=== PATIENT | female | born 1990 | race Two or more races ===

== ENCOUNTER 2021-07-23 14:45 | Inpatient (IN) | payer OTHER ==
[~2021-07-23] VITALS: Ht 160 cm; Wt 78.9 kg
[2021-08-01] MEDS ORDERED: PRENATAL TABLE1 EAC1 (10:43)
[2021-08-01] MEDS ORDERED: FOLIC ACID20 MG (10:43)
== END 2021-08-03 12:19 | disposition home or self-care (01) | DRG 768 ==
LOC: OB/GYN 08-01 08:31 → LDR 08-01 08:31 → OB/GYN 08-01 16:14
PROVIDERS: ADMIT Obstetrics & Gynecology; ATTEND Obstetrics & Gynecology
PROC: 10E0XZZ Delivery of Products of Conception, External Approach (ICD-10-PCS; principal; 2021-08-01)
PROC: 0DQR0ZZ Repair Anal Sphincter, Open Approach (ICD-10-PCS; 2021-08-01)
PROC: 4A1HXCZ Monitoring of Products of Conception, Cardiac Rate, External Approach (ICD-10-PCS; 2021-08-01)
DX: O70.21 Third degree perineal laceration during delivery, IIIa (principal); Z37.0 Single live birth; Z3A.38 38 weeks gestation of pregnancy; Z20.822 Contact with and (suspected) exposure to COVID-19

== ENCOUNTER 2023-06-10 14:30 | Inpatient (IN) | payer OTHER ==
[~2023-06-10] VITALS: Ht 160 cm; Wt 74.4 kg
[~2023-06-10 14:30] MED LIST: FOLIC ACID20 MG; PRENATAL TABLE1 EAC1
[2023-06-16] MEDS ORDERED: OXYTOCIN 20 UNITS/500ML RL PIGGYBAG IV ONE (11:59)
[2023-06-16] MEDS ORDERED: AMPICILLIN SODIUM 2,000 MG VIAL IV ONE (12:15)
[2023-06-16] MEDS ORDERED: OXYTOCIN 500 ML IV SCH (12:15)
[2023-06-16] MEDS ORDERED: MORPHINE SULFATE 4 MG/ML CARTRIDGE IV PRN (12:15)
[2023-06-16 12:32] LABS: HEMATOCRIT 32.9 % (36.0-45.00); HEMOGLOBIN 10.9 g/dL (12.0-15.00); MEAN CELL VOLUME 85.2 fL (80.00-100.00); MEAN CORPUSCULAR HEMOGLOBIN 28.3 pg (27.00-32.0); MEAN CORPUSCULAR HGB CONC 33.3 g/dl (32.0-36.0); PLATELET COUNT 223 K/uL (150-450); RED BLOOD COUNT 3.86 M/uL (4.00-6.00); RED CELL DISTRIBUTION WIDTH 16.1 % (11.5-14.5)
[2023-06-16 12:33] LABS: PH,URINE 7.5 (5.0-8.0); URINE APPEARANCE Cloudy; URINE BILIRRUBIN Negative (NEGATIVE); URINE BLOOD Negative; URINE COLOR Yellow; URINE GLUCOSE Negative (NEGATIVE); URINE LEUKOCYTE Negative; URINE NITRATE Negative; URINE PROTEIN Negative (NEGATIVE)
[2023-06-16 12:34] LABS: URINE BACTERIA 134.7 uL (0.0-1933); URINE EPITHELIAL CELLS 16.8 uL (0.0-38.8); URINE RBC 6.6 uL (0.0-20.8); URINE WBC 3.2 uL (0.0-23.2)
[2023-06-16 12:50] LABS: INR 0.95; PARTIAL THROMBOPLASTIN TIME 27.2 SECONDS (22.0-34.0)
[2023-06-16 12:56] LABS: ALBUMIN 2.7 gm/dL (3.4-5.0); BILIRUBIN TOTAL 0.51 mg/dL (0.3-1.2); CALCIUM 9.8 mg/dL (8.5-10.1); CREATININE SERUM 0.54 mg/dL (0.55-1.02); GFR 131.68; GLOBULINA 3.8 G/DL (2.4-3.5); POTASSIUM 4.17 mEq/L (3.5-5.1); TOTAL PROTEIN 6.5 gm/dL (6.4-8.2)
[2023-06-16] MEDS ORDERED: AMPICILLIN SODIUM 1,000 MG VIAL IV SCH (16:00)
[2023-06-16] MEDS ORDERED: OXYTOCIN 20 UNITS/1000ML RL PIGGYBAG IV ONE (16:35)
[2023-06-16] MEDS ORDERED: ERYTHROMYCIN BASE 1 GM TUBE OP ONE (16:35)
[2023-06-16] MEDS ORDERED: CHLORHEXIDINE GLUCONATE 120 ML BOTTLE TOP ONE (16:35)
[2023-06-16] MEDS ORDERED: MORPHINE SULFATE 2 MG/ML CARTRIDGE IV ONE (17:45)
[2023-06-16] MEDS ORDERED: METHYLERGONOVINE MALEATE 0.2 MG/ML AMPUL ONE (18:32)
[2023-06-16] MEDS ORDERED: CEFAZOLIN SODIUM 1,000 MG VIAL ONE (18:34)
[2023-06-16] MEDS ORDERED: MISOPROSTOL 100 MCG TABLET ONE (18:35)
[2023-06-16] MEDS ORDERED: METHYLERGONOVINE MALEATE 0.2 MG/ML AMPUL IV STA (18:52)
[2023-06-16] MEDS ORDERED: DOCUSATE SODIUM 100MG CAP PO SCH (18:53)
[2023-06-16] MEDS ORDERED: IBUprofen 600 MG TABLET PO SCH (18:54)
[2023-06-16] MEDS ORDERED: MISOPROSTOL 100 MCG TABLET RECTAL ONE ×2 (19:00→20:45)
[2023-06-16] MEDS ORDERED: CHLORHEXIDINE GLUCONATE 120 ML BOTTLE TOP SCH (19:00)
[2023-06-16] MEDS ORDERED: LIDOCAINE HCL 1% 200MG/20ML VIAL IJ SCH (19:00)
[2023-06-16] MEDS ORDERED: ERYTHROMYCIN BASE 1 GM TUBE OP SCH (19:00)
[2023-06-16] MEDS ORDERED: OXYTOCIN 1,000 ML IV SCH (19:00)
[2023-06-16] MEDS ORDERED: CEFAZOLIN SODIUM 1,000 MG VIAL IV ONE (19:00)
[2023-06-16 20:01] LABS: ABG PH 7.326 (7.35-7.45); ABG PO2 32.7 mmHg (80-100); ABG pCO2 44.8 mmHg (35-45); BASE EXCESS -3.2 mmol/l; BICARBONATE 22.9 mmol/l (23-25); SaO2 56.7 %; Tco2 24.3 mmol/l; o2 21 %
[2023-06-17 05:56] LABS: HEMATOCRIT 27.5 % (36.0-45.00); HEMOGLOBIN 9.2 g/dL (12.0-15.00); MEAN CELL VOLUME 86.5 fL (80.00-100.00); MEAN CORPUSCULAR HEMOGLOBIN 28.9 pg (27.00-32.0); MEAN CORPUSCULAR HGB CONC 33.3 g/dl (32.0-36.0); PLATELET COUNT 166 K/uL (150-450); RED BLOOD COUNT 3.17 M/uL (4.00-6.00); RED CELL DISTRIBUTION WIDTH 16.1 % (11.5-14.5)
[2023-06-17] MEDS ORDERED: SOD FERRIC GLUC COMPLX/SUCROSE 62.5 MG/5 ML AMPUL IV ONE (07:30)
[2023-06-17] MEDS ORDERED: PNV,CALCIUM 72/IRON/FOLIC ACID 1 TAB TABLET PO SCH (09:00)
[2023-06-17] MEDS ORDERED: CEPHALEXIN 500 MG CAPSULE PO SCH (11:39)
[2023-06-18] MEDS ORDERED: IRON/V.C/V.B12/FOLIC A/VIT. E 1 CAPL CAPLET PO SCH (09:00)
== END 2023-06-18 10:24 | disposition home or self-care (01) | DRG 807 ==
LOC: LDR 06-16 11:00 → OB/GYN 06-16 18:30 → SURH 06-27 14:30
PROVIDERS: Obstetrics & Gynecology Gynecology; ADMIT Obstetrics & Gynecology; ATTEND Obstetrics & Gynecology
PROC: 10E0XZZ Delivery of Products of Conception, External Approach (ICD-10-PCS; principal; 2023-06-16)
PROC: 0HQ9XZZ Repair Perineum Skin, External Approach (ICD-10-PCS; 2023-06-16)
PROC: 0UQMXZZ Repair Vulva, External Approach (ICD-10-PCS; 2023-06-16)
PROC: 4A1HXCZ Monitoring of Products of Conception, Cardiac Rate, External Approach (ICD-10-PCS; 2023-06-16)
DX: O70.0 First degree perineal laceration during delivery (principal); Z37.0 Single live birth; O99.824 Streptococcus B carrier state complicating childbirth; Z3A.38 38 weeks gestation of pregnancy; Z20.822 Contact with and (suspected) exposure to COVID-19

== ENCOUNTER 2023-06-15 14:43 | Outpatient (CLI) | payer OTHER | END 2023-06-15 17:13 | disposition home or self-care (01) | LOC: OBS/DEL 14:43 | PROVIDERS: ATTEND Obstetrics & Gynecology | DX: O47.1 False labor at or after 37 completed weeks of gestation (principal); Z3A.38 38 weeks gestation of pregnancy ==